=== PATIENT | male | born 1975 | race Two or more races ===

== ENCOUNTER 2022-05-26 17:51 | Emergency (ER) | payer OTHER, SELFPAY ==
--- NOTE | ~2022-05-26 | CT_ITS ---
EXAMINATION: CT abdomen pelvis wo con DATE: 05/26/2022 19:16 INDICATION: right flank pain RADIATING TO FRONT r ABD, n/v TECHNIQUE: Computed tomography (CT) of the abdomen and pelvis was performed without intravenous contr ast. Automated exposure control and iterative reconstruction technique were employed. The dose-length product was 544.38 mGy-cm. COMPARISON: None. FINDINGS: Lower thorax: Small hiatal hernia. Liver: Normal. Biliary/Gallbladder: Gallbladder is normal. No bile duct dilation. Pancreas: No mass or duct dilation. Spleen: Normal. Adrenals:No mass. Kidneys: No mild right pelviectasis and ureterectasis with stranding. GI tract: No small or large bowel dilation. Normal appendix. Mesentery/Peritoneum: No ascites, mass, or free air. Retroperitoneum: No mass. Pelvis: Mild wall thickening and a suggestion of inflammatory change in the urinary bladder. 2 mm rig ht UVJ calcification. Mild prostatomegaly. Soft Tissues: Soft tissues and body wall unremarkable. Bones: No acute osseous finding. IMPRESSION: 2 mm right UVJ stone causing mild obstructive uropathy. Bladder wall thickening may be related to par tial distention, obstruction, or cystitis in the appropriate clinical context. Reviewed, dictated and finalized at location K. IMPRESSION: 2 mm right UVJ stone causing mild obstructive uropathy. Bladder wall thickening may be related to partial distention, obstruction, or cystitis in the appropri ate clinical context.
[2022-05-26 17:55] VITALS: BP 146/93; PULSE 84; RESP 15; TEMP 36.3; O2SAT 100
[2022-05-26 18:12] LABS: Basophils Percent Auto 0.2 % (0.2-1.2); Eosinophils Absolute Auto 0.1 K/mm3 (0-0.3); Hematocrit 40.5 % (42.0-52.0); Hemoglobin 13.5 g/dL (14.0-18.0); Lymphocytes Absolute Auto 1.12 K/mm3 (0.9-3.2); Lymphocytes Percent Auto 22.9 % (18.3-44.2); Mean Corpuscular HGB Conc 33.3 g/dl (32-36); Mean Corpuscular Hemoglobin 30.1 pg (26-34); Mean Corpuscular Volume 90.4 fl (80-100); Monocytes Absolute Auto 0.4 K/mm3 (0.1-0.6); Monocytes Percent Auto 8.4 % (2.6-8.5); Neutrophils Absolute Auto 3.3 K/mm3 (1.3-6.7); Neutrophils Percent Auto 67.5 % (45.5-73.1); Platelet Count Result 213 k/mm3 (150-375); Red Blood Count 4.48 M/mm3 (4.6-6.20); Red Cell Distribution Width 13.5 % (11.5-14.5); White Blood Count 4.9 K/mm3 (4.5-10.0)
[2022-05-26 18:24] LABS: Alanine Aminotransferase 36 U/L (6-50); Albumin Level 5.1 g/dL (3.5-5.1); Alkaline Phosphatase 76 U/L (38-126); Anion Gap 10 mmol/L (8-16); Aspartate Amino Transferase 35 U/L (17-59); Bilirubin,Total 0.5 mg/dL (0.2-1.3); Blood Urea Nitrogen 12 mg/dL (9-20); Calcium 9.7 mg/dL (8.4-10.2); Carbon Dioxide 27 mmol/L (22-30); Chloride 103 mmol/L (98-107); Estimated CRCL calculation 75 ml/min; Estimated Glomerular Filt Rate > 60; Glucose 109 mg/dL (65-110); Lipase 85 U/L (23-300); Potassium 3.6 mmol/L (3.4-5.0); Sodium 140 mmol/L (137-145)
--- NOTE | 2022-05-26 18:39 | ED.GENADULT ---
HPI - General Adult General Chief complaint: Back Pain/Injury Stated complaint: back/ flank pain Time Seen by Provider: 05/26/22 18:26 History of Present Illness HPI narrative: 46-year-old male presents to the emergency room for evaluation of right flank pain. States the pain began earlier today, and was causing him to be nauseated. Patient states over the course of the next 2 hours, began to experience the pain radiated into his groin area. Just prior to arrival to the emergency room the pain radiate into his testicles and then abruptly resolved. Patient states while he was experiencing the pain he was unable to find a comfortable position, was having difficulty urinating, and was nauseated. No history of kidney stones. Patient does admit to drinking a significant amount of soda throughout the day. Related Data Allergies Allergy/AdvReac Type Severity Reaction Status Date / Time No Known Allergies Allergy Verified 05/26/22 19:22 Review of Systems Review of Systems: CONSTITUTIONAL: Denies fever, chills, or sweats. EYES: Denies visual changes, redness, or discharge. ENT: Denies rhinorrhea, congestion, sore throat, or otalgia. CARDIOVASCULAR: Denies chest pain, palpitations, or edema. RESPIRATORY: Denies cough or dyspnea. GASTROINTESTINAL: Reports right flank pain GENITOURINARY: Denies dysuria or hematuria. SKIN: Denies rash or itching. MUSCULOSKELETAL: Denies back pain, joint pain, or myalgia. NEUROLOGIC: Denies headache, numbness, dizziness, or weakness. PSYCHIATRIC: Denies anxiety or depression. Exam Narrative: GENERAL: Well-appearing, well-nourished, no physical limitations, and in no acute distress. HEAD: Normocephalic, atraumatic. EYES: Conjunctivae normal, PERRLA and EOMI. CHEST: Clear to auscultation. No respiratory distress. No wheezes rales or rhonchi. HEART: Regular rate and rhythm. No murmur heard. Normal peripheral pulses. ABDOMEN: Soft, nontender, nondistended, normal active bowel sounds. BACK: No CVA tenderness EXTREMITIES: Normal range of motion. No edema. No clubbing or cyanosis SKIN: Warm, dry, no rash. No noted wounds NEURO: No focal deficits. Alert and oriented x3. MAEW. CN's II-XI intact bilaterally, normal gait PSYCH: Cooperative. Normal mood and affect. Course Vital Signs Vital signs: Vital Signs Temperature 36.3 C L 05/26/22 17:55 Pulse Rate 84 05/26/22 17:55 Respiratory Rate 15 05/26/22 17:55 Blood Pressure 146/93 H 05/26/22 17:55 Pulse Oximetry 100 05/26/22 17:55 Oxygen Delivery Room Air 05/26/22 17:55 Temperature 36.3 C L 05/26/22 17:55 Pulse Rate 84 05/26/22 17:55 Respiratory Rate 15 05/26/22 17:55 Blood Pressure 146/93 H 05/26/22 17:55 Pulse Oximetry 100 05/26/22 17:55 Oxygen Delivery Room Air 05/26/22 17:55 Medical Decision Making MDM Narrative Medical decision making narrative: 46-year-old male presenting with right flank pain radiating to his groin area. No history of kidney stones. CBC and CMP were unremarkable. Urinalysis was positive for hematuria. CT scans showed a 2 mm stone in the right UVJ. Patient was given a liter of fluid and Toradol and experienced complete pain relief. Will discharge patient home and have him follow-up with urology as needed. Vital Signs Vital Signs: Vital Signs Temperature 36.3 C L 05/26/22 17:55 Pulse Rate 84 05/26/22 17:55 Respiratory Rate 15 05/26/22 17:55 Blood Pressure 146/93 H 05/26/22 17:55 Pulse Oximetry 100 05/26/22 17:55 Oxygen Delivery Room Air 05/26/22 17:55 Temperature 36.3 C L 05/26/22 17:55 Pulse Rate 84 05/26/22 17:55 Respiratory Rate 15 05/26/22 17:55 Blood Pressure 146/93 H 05/26/22 17:55 Pulse Oximetry 100 05/26/22 17:55 Oxygen Delivery Room Air 05/26/22 17:55 Lab Data Result diagrams: 05/26/22 18:00 05/26/22 18:00 Labs: Lab Results 05/26/22 05/26/22 05/26/22 Range/Units 18:00 18:00 18:39 WBC 4.9
[2022-05-26 19:09] LABS: Add Urine Microscopic? YES; Appearance Urine Clear (Clear); Bilirubin Urine Negative (Negative); Blood Urine 2+ (Negative); Color Urine Yellow (Yellow); Glucose Urine UA Negative (Negative); Ketones Urine Negative (Negative); Leukocyte Esterase Ur Negative LEU/UL (Negative); Mucus Urine Rare /lpf; Nitrate Urine Negative (Negative); Protein Urine Negative (Negative); RBC Urine >75 /hpf (0-2); Specific Grav Ur 1.015 (1.001-1.035); Urobilinogen Urine Negative mg/dL (<2.0); WBC Urine 0-3 /hpf
[2022-05-26] MEDS: KETOROLAC 30 MG/ML VIAL (*BKC) IV PUSH (19:46)
[2022-05-26] MEDS: SODIUM CHLORIDE 0.9% IV 1,000 ML 999 ML IV CONT (19:46)
[2022-05-26 20:57] VITALS: BP 136/81; PULSE 64; RESP 14; O2SAT 100
== END 2022-05-26 20:57 | disposition home or self-care (01) ==
PROVIDERS: Emergency Medicine; Emergency Provider Nurse Practitioner Family
DX: N20.0 Calculus of kidney (principal)
CPT/HCPCS: 36415; 74176; 80053; 81001; 83690; 85025; 96361; 96374; 99284; J1885; J7030